=== PATIENT | male | born 1945 | race Caucasian/White ===

== ENCOUNTER 2018-04-16 09:34 | Emergency (ER) | payer OTHER, MEDICARE ==
[~2018-04-16] VITALS: Ht 182.9 cm; Wt 122.5 kg
[2018-04-16 11:42] LABS: ABSOLUTE BASOPHIL COUNT 0 /CUMM (0.0-0.2); ABSOLUTE EOSINOPHIL COUNT 0.4 /CUMM (0.0-0.7); ABSOLUTE LYMPH COUNT 1.6 /CUMM (1.2-3.4); ABSOLUTE MONOCYTE COUNT 0.7 /CUMM (0.10-0.60); BASOPHIL % 0.7 % (0.0-2.0); EOSINOPHIL % 5.2 % (0-5); GRANULOCYTE % 60.2 % (42.2-75.2); HEMATOCRIT 43.7 % (42-52); MEAN CORPUSCULAR HGB 32.3 PG (27.0-31.0); MEAN CORPUSCULAR HGB CONC 34.4 G/DL (33.0-37.0); MEAN CORPUSCULAR VOLUME 93.6 FL (80.0-94.0); MEAN PLATELET VOLUME 7.6 FL (7.4-10.4); PLATELET COUNT 222 /CUMM (130-400); RBC DISTRIBUTION WIDTH 14.1 % (11.5-14.5); RED BLOOD CELL CT 4.66 /CUMM (4.70-6.10); WHITE BLOOD CELL COUNT 6.7 /CUMM (4.8-10.8)
[2018-04-16] MEDS ORDERED: DICLOFENAC SODI75 M2 PO (11:45)
[2018-04-16] MEDS ORDERED: SIMVASTATIN20 M2 PO (11:46)
[2018-04-16] MEDS ORDERED: HYDROCHLOROTH12.5 M2 PO (11:48)
[2018-04-16] MEDS ORDERED: FUROSEMIDE20 M1 PO (11:48)
--- NOTE | 2018-04-16 12:36 | ED GENERAL ADULT ---
History of Present Illness General Chief Complaint: General Adult Stated Complaint: BILATERAL FEET SWELLING Source: patient Exam Limitations: no limitations Vital Signs & Intake/Output Vital Signs & Intake/Output Vital Signs Date Time Temp Pulse Resp B/P B/P Pulse O2 O2 Flow FiO2 Mean Ox Delivery Rate 04/16 1439 98.4 95 18 136/85 98 Room Air 04/16 1313 80 20 148/84 97 04/16 0937 98.6 83 18 152/88 98 Room Air Allergies Coded Allergies: NO KNOWN ALLERGIES (07/26/11) Reconcile Medications Diclofenac Sodium 75 MG TABLET.DR 1 TAB PO DAILY PAIN (Reported) Furosemide (Unknown Strength) TABLET (Unknown Dose) PO DAILY WATER RETENTION (Reported) Hydrochlorothiazide (Unknown Strength) TABLET (Unknown Dose) PO DAILY WATER RETENTION (Reported) Simvastatin (Simvastatin*) (Unknown Strength) TABLET (Unknown Dose) PO DAILY CHOLESTEROL (Reported) Triage Note: 73 YO MALE TO TRIAGE FOR EVAL OF BILATEARL LOWER EXTREMTY SWELLING AND SOME REDNESS TO LEGS. STATES HE IS ON WATER PILLS BUT "THEY DONT SEEM TO BE WORKING" DENIES SOB, CP. DENIES ANY PAIN. PT CONCERENED HE MIGHT BE DEVELOPING CELLULITIS IN HIS LEGS (HX OF SAME). AFEBRILE. Triage Nurses Notes Reviewed? yes HPI: 73yo male with PMH of HTN, Hyperlipidemia, arthritis, renal problems, cellulitis , bacertemia presenting with bilateral leg swelling and blistering. Pt states that he has had the bilateral leg swelling over the last few months and has gained over 20 pounds. His PCP prescribed him a diuretic, but pt has not been compliant with his medication. Pt was prompted to come into the ED today by his who is concerned with the blistering. Pt states that the blistering and errythema started a few days ago. He states that his legs feel heavy and has a hard time walking. Elevating the legs helps with his symptoms. Pt denies any fevers, chills, chest pain, abdominal pain, shortness of breathe. (Michel JAMES,Francisco) Past History Travel History Traveled to [place] past 21 day No Medical History Any Pertinent Medical History? see below for history Cardiovascular: hypertension, hyperlipidemia Musculoskeletal: ARTHIRITS Surgical History Surgical History: non-contributory Psychosocial History What is your primary language Singaporean Tobacco Use: Quit >30 days ago Family History Hx Contributory? No (Francisco Rodarte) Review of Systems Review of Systems Constitutional: Reports: see HPI. EENTM: Reports: no symptoms. Respiratory: Reports: no symptoms. Cardiovascular: Reports: no symptoms. GI: Reports: no symptoms. Genitourinary: Reports: no symptoms. Musculoskeletal: Reports: no symptoms. Skin: Reports: see HPI. Neurological/Psychological: Reports: no symptoms. Hematologic/Endocrine: Reports: no symptoms. Immunologic/Allergic: Reports: no symptoms. All Other Systems: Reviewed and Negative (Francisco Rodarte) Physical Exam Physical Exam General Appearance: well developed/nourished, no apparent distress, alert, awake Head: atraumatic, normal appearance Eyes: Bilateral: normal appearance, PERRL, EOMI. Ears, Nose, Throat: normal pharynx, normal ENT inspection, hearing grossly normal Neck: normal inspection, supple, full range of motion Respiratory: normal breath sounds, chest non-tender, no respiratory distress Cardiovascular: regular rate/rhythm Gastrointestinal: soft, non-tender Back: normal inspection, normal range of motion Extremities: normal range of motion, calf tenderness, pedal edema, swelling, tenderness, bilateral non pitting edema of the lower extremities erythema and blistering noted on anterior lower extremities deminished pedal pulses bilaterally sensory intact; limited ROM d/t pedal edema Neurologic/Psych: awake, alert, oriented x 3, normal mood/affect Skin: normal color, warm/dry, erythematous over anterior lower extremities bilaterally Core Measures ACS in differential dx? No CVA/TIA Diagnosis: No Sepsis Present: No Sepsis Focused Exam Completed? No (Francisco Rodarte) Progress Differential Diagnoses I considered the following diagnoses in my evaluation of the patient: Cellulitis, DVT, kidney failure, liver failure, CHF, venous stasis, Plan of Care: Orders Procedure Date/time Status Add-on Test (ER Only) 04/16 1351 Active Add-on Test (ER Only) 04/16 1200 Active TROPONIN LEVEL 04/16 1133 Complete B-TYPE NATRIURETIC PEP (BNP) 04/16 1133 Complete LACTIC ACID 04/16 1115 Complete WESTERGREN SED RATE 04/16 1115 Complete C-REACTIVE PROTEIN 04/16 1115 Complete COMPREHENSIVE METABOLIC PANEL 04/16 1115 Complete CBC WITHOUT DIFFERENTIAL 04/16 1115 Complete EKG 04/16 1115 Active Laboratory Tests 04/16/18 1415: Lactic Acid Cancelled 04/16/18 1133: Anion Gap 11, Estimated GFR 43 L, BUN/Creatinine Ratio 15.0, Glucose 95, Lactic Acid 1.7, Calcium 9.5, Total Bilirubin 0.5, AST 31, ALT 45, Alkaline Phosphatase 90, Troponin I < 0.01, C-Reactive Prot, Quant 0.7, Oxk-B-Ufdyefdozwc Pept 50.0, Total Protein 7.6, Albumin 4.2, Globulin 3.4, Albumin/Globulin Ratio 1.2, CBC w Diff NO MAN DIFF REQ, RBC 4.66 L, MCV 93.6, MCH 32.3 H, MCHC 34.4, RDW 14.1, MPV 7.6, Gran % 60.2, Lymphocytes % 24.0, Monocytes % 9.9 H, Eosinophils % 5.2 H, Basophils % 0.7, Absolute Granulocytes 4.0, Absolute Lymphocytes 1.6, Absolute Monocytes 0.7 H, Absolute Eosinophils 0.4, Absolute Basophils 0, ESR Westergren 20 H Diagnostic Imaging: Viewed by Me: Radiology Read, Ultrasound. Discussed w/RAD: Radiology Read, Ultrasound. Radiology Impression: PATIENT: KESHIA DONALD V PRESENT AGE: 73 PATIENT ACCOUNT NO: [id number] : 47 LOCATION: [facility] ORDERING PHYSICIAN: Francisco JAMES SERVICE DATE: 04/16/18 EXAM TYPE: US - US -EXT BILAT VENOUS DOPPLER EXAMINATION: US TRIPLEX OF LOWER EXTREMITIES, BILATERAL CLINICAL INFORMATION: Bilateral leg swelling. COMPARISON: None TECHNIQUE: Color-flow triplex imaging with spectral analysis and compression Doppler were performed on the lower extremities. FINDINGS: Respiratory variation , normal compression and augmented flow are noted throughout the lower extremities. The visualized common femoral vein, superficial femoral vein, profunda femoral vein, popliteal vein and midcalf peroneal and posterior tibial venous segments show no evidence of deep venous thrombosis. There is no Ramesh's cyst on either side. IMPRESSION: No evidence of deep venous thrombosis involving the bilateral lower extremities. DICTATED BY: Devan Treadwell MD DATE/TIME DICTATED:04/16/181313 WIRELESS INTERNET INSTALLER:[place] DATE/TIME TRANSCRIBED:1313 CONFIDENTIAL, DO NOT COPY WITHOUT APPROPRIATE AUTHORIZATION. < Electronically signed in Other Vendor System> SIGNED BY: Devan Treadwell MD 04/16/18 1326, PATIENT: KESHIA DONALD V PRESENT AGE: 73 PATIENT ACCOUNT NO: [id number] : 47 LOCATION: [facility] ORDERING PHYSICIAN: Francisco JAMES SERVICE DATE: 04/16/18-1199 EXAM TYPE: RAD - XRY-PORTABLE CHEST XRAY EXAMINATION: XR PORTABLE CHEST CLINICAL INFORMATION: Bilateral leg swelling. Rule out CHF. COMPARISON: Chest x-ray dated 07/26/2011. TECHNIQUE: Portable AP semierect view of the chest was obtained. FINDINGS: The cardiomediastinal silhouette is within normal limits in size. Lungs bilaterally are symmetrically expanded. Evaluation is limited by slight motion artifact and patient's body habitus. Mild central vascular congestion is seen without overt pulmonary edema. No focal consolidation, effusion or pneumothorax is seen. Bony structures are unremarkable. IMPRESSION: Central vascular congestion. No pulmonary edema. DICTATED BY: Megan Aceves MD DATE/TIME DICTATED:04/16/181235 WIRELESS INTERNET INSTALLER:[place] DATE/TIME TRANSCRIBED:04/16/181235 CONFIDENTIAL, DO NOT COPY WITHOUT APPROPRIATE AUTHORIZATION. <Electronically signed in Other Vendor System> SIGNED BY: Megan Aceves MD 04/16/18 1242 Initial ED EKG: normal sinus rhythm, rate (67) (Francisco Rodarte) Departure Departure Disposition: HOME OR SELF CARE Condition: Stable Clinical Impression Primary Impression: Bilateral lower extremity edema Referrals: Demian Tolliver MD (PCP/Family) Additional Instructions: Use her compression stockings at home. Elevate your legs. Take your diuretic on a daily basis like its prescribed. Contact your primary care doctor. Return if any other concerns. Please go over all results of today's visit with your primary care doctor. Contact your primary care doctor to let them know you were here in the emergency room. There may be nonspecific findings which may not be related to your visit today here in the emergency room but may require further evaluation and chronic monitoring by your primary care doctor. If you had a laceration today the chance of foreign body always remains. You should follow-up with your primary care doctor for recheck in 3-5 days for a wound check. If you had an x-ray done there is a chance that a fracture could have been missed on initial read and you should follow-up with your primary care doctor for repeat x-rays if symptoms persist. If your blood pressure was elevated here in the emergency room please have rechecked by kymour primary care doctor within the next 48. If you were prescribed a narcotic here in the emergency room or any type of controlled substances you're not allowed to drive while taking this medication or operate any type of heavy machinery. Narcotics can make you feel lightheaded dizziness nausea and can cause constipation. You may need to cherry picker operator a stool softener. Thank you for choosing [facility] emergency room. Please return to the emergency room immediately if you have any other concerns worsening of symptoms. Departure Forms: Customer Survey General Discharge Information Comments 04/16/2018 3:08:49 PM Patient clinically looks well. Patient is in no apparent distress. Nontoxic- appearing. Resting comfortably in room. He is noncompliant with his diuretic. Consistent more with chronic venous stasis. Elevate legs. Use compression stockings. (Francisco Rodarte) PA/TRIGONOMETRY TUTOR Co-Sign Statement Statement: ED Attending supervision documentation- x I saw and evaluated the patient. I have also reviewed all the pertinent lab results and diagnostic results. I agree with the findings and the plan of care as documented in the PA's/TRIGONOMETRY TUTOR's documentation. [] I have reviewed the ED Record and agree with the PA's/TRIGONOMETRY TUTOR's documentation. [] Additions or exceptions (if any) to the PAs/TRIGONOMETRY TUTOR's note and plan are summarized below: [] (Chele HERRERA,Anjum) Critical Care Note Critical Care Note Critical Care Time: non-applicable (Francisco Rodarte) ED Attending Observation Initial Observation Note: I have seen and personally examined KESHIA DONALD V on 04/16/18 at 1510. I agree with the current emergency department documentation. The disposition (admission or discharge) is uncertain at this time, he needs a period of observation for the following reason(s): The ED Nurse caring for this patient has been personally informed as to what the patient is being observed for. (Francisco Rodarte)
--- NOTE | 2018-04-16 12:42 | RADIOLOGY REPORT ---
EXAMINATION: XR PORTABLE CHEST CLINICAL INFORMATION: Bilateral leg swelling. Rule out CHF. COMPARISON: Chest x-ray dated 07/26/2011. TECHNIQUE: Portable AP semierect view of the chest was obtained. FINDINGS: The cardiomediastinal silhouette is within normal limits in size. Lungs bilaterally are symmetrically expanded. Evaluation is limited by slight motion artifact and patient's body habitus. Mild central vascular congestion is seen without overt pulmonary edema. No focal consolidation, effusion or pneumothorax is seen. Bony structures are unremarkable. IMPRESSION: Central vascular congestion. No pulmonary edema.
--- NOTE | 2018-04-16 13:26 | ULTRASOUND REPORT ---
EXAMINATION: US TRIPLEX OF LOWER EXTREMITIES, BILATERAL CLINICAL INFORMATION: Bilateral leg swelling. COMPARISON: None TECHNIQUE: Color-flow triplex imaging with spectral analysis and compression Doppler were performed on the lower extremities. FINDINGS: Respiratory variation, normal compression and augmented flow are noted throughout the lower extremities. The visualized common femoral vein, superficial femoral vein, profunda femoral vein, popliteal vein and midcalf peroneal and posterior tibial venous segments show no evidence of deep venous thrombosis. There is no Ramesh's cyst on either side. IMPRESSION: No evidence of deep venous thrombosis involving the bilateral lower extremities.
[2018-04-16 14:39] VITALS: BP 136/85
== END 2018-04-16 14:43 ==
LOC: ERH 09:34
PROVIDERS: Physician Assistant Medical
DX: R60.0 Localized edema (principal); Z87.891 Personal history of nicotine dependence
CPT/HCPCS: 71045; 93005; 93010; 93970